=== PATIENT | female | born 1985 | race Caucasian/White ===

== ENCOUNTER 2020-12-23 13:39 | Emergency (ER) | payer OTHER ==
[2020-12-23 14:30] LABS: BASOPHIL 0.7 % (0-2); EOSINOPHIL 3.2 % (0-5); HCT 42.7 % (37.0-47.0); HGB 13.7 g/dl (12.5-16.0); LYMPHOCYTE 35.4 % (15-48); MCH 29.3 pg (25.0-31.0); MCHC 32.1 g/dL (32.0-36.0); MCV 91.4 fL (78.0-100.0); MONOCYTE 5.6 % (0-12); MPV 10.8 fL (6.0-9.5); NRBC 0; PLT 259 K/uL (150-400); RBC 4.67 M/uL (4.20-5.40); RDW 13.9 % (11.5-14.0); WBC 7.3 K/uL (4.0-10.5)
[2020-12-23 14:53] LABS: BILIRUBIN NEGATIVE (NEGATIVE); BLOOD NEGATIVE Ery/uL (NEGATIVE); CLARITY CLEAR (CLEAR); COLOR YELLOW (YELLOW); GLUCOSE (U) NORMAL (NORMAL); LEUKOCYTES 1+ Leu/uL (NEGATIVE); NITRITE NEGATIVE (NEGATIVE); PROTEIN NEGATIVE (NEGATIVE); UROBILINOGEN 0.2 mg/dL (0.2-1.0)
[2020-12-23 14:54] LABS: ALBUMIN 4.3 g/dL (3.4-5.0); BILIRUBIN - TOTAL 0.3 mg/dL (0.2-1.0); CREATININE 0.75 mg/dL (0.51-0.95); GLOBULIN (CALCULATION) 3.4 g/dL; POTASSIUM 3.9 mmol/L (3.5-5.1); TOTAL PROTEIN 7.7 g/dL (6.4-8.2)
[2020-12-23 15:01] LABS: BACTERIA TRACE; URINARY RBC RARE; URINARY WBC RARE
[2020-12-23] MEDS ORDERED: CEPHALEXIN500 MG PO (16:10)
[2020-12-23] MEDS ORDERED: ZOFRAN4 M1 PO (16:10)
[2020-12-23] MEDS ORDERED: DIFLUCAN150 MG PO (16:11)
== END 2020-12-23 16:30 | disposition home or self-care (01) ==
LOC: FER 13:39
PROVIDERS: Nurse Practitioner Family
DX: N39.0 Urinary tract infection, site not specified (principal); Z88.2 Allergy status to sulfonamides
CPT/HCPCS: 36415; 80053; 81001; 85025; 87088

== ENCOUNTER 2021-01-31 20:12 | Emergency (ER) | payer OTHER ==
[~2021-01-31 20:12] MED LIST: CEPHALEXIN500 MG PO; DIFLUCAN150 MG PO; ZOFRAN4 M1 PO
[2021-01-31] MEDS ORDERED: MEDROL 4MG DOSEP4 MG PO (22:15)
== END 2021-01-31 22:36 | disposition home or self-care (01) ==
LOC: FER 20:12
DX: J34.89 Other specified disorders of nose and nasal sinuses (principal); Z88.2 Allergy status to sulfonamides
CPT/HCPCS: 70486; J1100

== ENCOUNTER 2021-02-13 10:44 | Emergency (ER) | payer OTHER ==
[~2021-02-13 10:44] MED LIST changes: +MEDROL 4MG DOSEP4 MG PO
[2021-02-13 12:40] LABS: BASOPHIL 0.4 % (0-2); EOSINOPHIL 0.1 % (0-5); HCT 42.9 % (37.0-47.0); HGB 14.3 g/dl (12.5-16.0); LYMPHOCYTE 23.2 % (15-48); MCH 30.1 pg (25.0-31.0); MCHC 33.3 g/dL (32.0-36.0); MCV 90.3 fL (78.0-100.0); MONOCYTE 5.4 % (0-12); MPV 10.6 fL (6.0-9.5); NEUTROPHIL 70.6 % (41-80); NRBC 0; PLT 199 K/uL (150-400); RBC 4.75 M/uL (4.20-5.40); RDW 14.1 % (11.5-14.0); WBC 7.6 K/uL (4.0-10.5)
[2021-02-13 13:16] LABS: ALBUMIN 4.2 g/dL (3.4-5.0); BILIRUBIN - TOTAL 0.5 mg/dL (0.2-1.0); CREATININE 0.87 mg/dL (0.51-0.95); GLOBULIN (CALCULATION) 3.1 g/dL; TOTAL PROTEIN 7.3 g/dL (6.4-8.2)
[2021-02-13] MEDS ORDERED: DIFLUCAN150 MG PO (16:48)
[2021-02-13] MEDS ORDERED: PREDNISONE 20MG20 MG PO (16:48)
== END 2021-02-13 17:20 | disposition home or self-care (01) ==
LOC: FER 10:44
PROVIDERS: Emergency Medicine
DX: J32.9 Chronic sinusitis, unspecified (principal); B48.8 Other specified mycoses; Z88.2 Allergy status to sulfonamides; Z91.048 Other nonmedicinal substance allergy status
CPT/HCPCS: 36415; 71046; 80053; 84145; 85025; J2930

== ENCOUNTER 2021-07-06 20:48 | Emergency (ER) | payer OTHER ==
[~2021-07-06 20:48] MED LIST changes: +MELOXICAM15 MG PO; +NORCO 5/3251 EACH PO; +PREDNISONE 20MG20 MG PO
[2021-07-06 21:31] LABS: BILIRUBIN NEGATIVE (NEGATIVE); BLOOD NEGATIVE Ery/uL (NEGATIVE); CLARITY CLEAR (CLEAR); COLOR YELLOW (YELLOW); GLUCOSE (U) NORMAL (NORMAL); LEUKOCYTES NEGATIVE Leu/uL (NEGATIVE); NITRITE NEGATIVE (NEGATIVE); PROTEIN NEGATIVE (NEGATIVE); SPECIFIC GRAVITY 1.025 (1.001-1.030); UROBILINOGEN 0.2 mg/dL (0.2-1.0); pH 6.5 (5.0-9.0)
[2021-07-06 23:47] LABS: BASOPHIL 0.5 % (0-2); EOSINOPHIL 3.1 % (0-5); HCT 41.7 % (37.0-47.0); HGB 13.5 g/dl (12.5-16.0); LYMPHOCYTE 32.2 % (15-48); MCH 29.2 pg (25.0-31.0); MCHC 32.4 g/dL (32.0-36.0); MCV 90.1 fL (78.0-100.0); MONOCYTE 6.1 % (0-12); MPV 9.9 fL (6.0-9.5); NEUTROPHIL 57.8 % (41-80); NRBC 0; PLT 318 K/uL (150-400); RBC 4.63 M/uL (4.20-5.40); WBC 10.2 K/uL (4.0-10.5)
[2021-07-07 00:02] LABS: ALBUMIN 3.9 g/dL (3.4-5.0); BILIRUBIN - TOTAL 0.4 mg/dL (0.2-1.0); BUN/CREAT RATIO (CALC) 20.9 RATIO; CREATININE 0.86 mg/dL (0.51-0.95); GLOBULIN (CALCULATION) 3.8 g/dL; POTASSIUM 4.1 mmol/L (3.5-5.1); TOTAL PROTEIN 7.7 g/dL (6.4-8.2)
[2021-07-07 01:25] LABS: CORONAVIRUS 2019 SARS-COV-2 NEGATIVE (NEGATIVE); INFLUENZA A NAA NEGATIVE (NEGATIVE)
[2021-07-07] MEDS ORDERED: NORCO 5-325 TA1 EACH PO (01:53)
[2021-07-07] MEDS ORDERED: PHENERGAN25 M1 PO (01:53)
[2021-07-07] MEDS ORDERED: ONDANSETRON ODT4 MG PO (01:53)
== END 2021-07-07 02:12 | disposition home or self-care (01) ==
LOC: FER 20:48
PROVIDERS: Internal Medicine; Surgery
DX: R10.2 Pelvic and perineal pain (principal); R11.2 Nausea with vomiting, unspecified; F17.200 Nicotine dependence, unspecified, uncomplicated; Z20.822 Contact with and (suspected) exposure to COVID-19; Z28.310 Unvaccinated for COVID-19; Z88.1 Allergy status to other antibiotic agents
CPT/HCPCS: 36415; 80053; 81003; 83690; 84145; 85025; J2405; J7120; Q9967; U0002

== ENCOUNTER 2021-10-03 21:21 | Emergency (ER) | payer OTHER ==
[~2021-10-03 21:21] MED LIST changes: +NORCO 5-325 TA1 EACH PO; +ONDANSETRON ODT4 MG PO; +PHENERGAN25 M1 PO
[2021-10-03] MEDS ORDERED: ZOVIRAX200 MG PO (23:11)
== END 2021-10-03 23:16 | disposition home or self-care (01) ==
LOC: FER 21:21
DX: B02.9 Zoster without complications (principal); Z88.1 Allergy status to other antibiotic agents
CPT/HCPCS: 99283